=== PATIENT | male | born 1995 | race Two or more races ===

== ENCOUNTER 2021-04-06 15:09 | Emergency (ER) | payer MEDICAID, OTHER ==
[~2021-04-06] VITALS: Ht 162.6 cm; Wt 97.5 kg
[2021-04-06 15:13] VITALS: BP 127/78
[2021-04-06] MEDS ORDERED: IBUPROFEN 800 MG TAB PO ONE (17:15)
== END 2021-04-06 18:01 | disposition home or self-care (01) ==
LOC: ER 15:09
DX: S46.811A Strain of other muscles, fascia and tendons at shoulder and upper arm level, right arm, initial encounter (principal); S63.681A Other sprain of right thumb, initial encounter; V49.49XA Driver injured in collision with other motor vehicles in traffic accident, initial encounter; Y93.89 Activity, other specified; Y92.488 Other paved roadways as the place of occurrence of the external cause; Y99.8 Other external cause status
CPT/HCPCS: 73030; 73130